=== PATIENT | male | born 1960 | race Caucasian/White ===

== ENCOUNTER 2017-01-03 10:01 | Inpatient (IN) | payer BC ==
[2017-01-03] MEDS ORDERED: SODIUM CHLORIDE 0.9% 1,000 ML IV ONE ×2 (10:39→11:41)
--- NOTE | 2017-01-03 10:42 | ED ---
General Adult HPI - General Chief complaint: Arrhythmia/Palpitations Stated complaint: Heart Fluttering Time Seen by Provider: 01/03/17 10:11 Source: patient, RN notes reviewed Mode of arrival: wheelchair Limitations: no limitations - History of Present Illness Initial comments: 56-year-old male presents for evaluation of palpitations and lightheadedness. Patient states he was driving to workarounds through this morning, felt a fluttering in his chest, no pain, no nausea. Did have some mild shortness of breath. He states he had some vision changes. Total vision. This resolved without any intervention. Went to work, had 2 or 3 additional episodes the same palpitations vision changes. He did feel little lightheaded. States he had a normal breakfast, but did not have anything to drink today. No fever. No headache. No nausea vomiting or diarrhea. Patient has no chest pain complaints. At the time of evaluation he is asymptomatic, normal vision. - Related Data Home Medications Medication Instructions Recorded Confirmed Omeprazole Magnesium [Prilosec OTC] 20 mg PO DAILY PRN 01/03/17 01/03/17 Allergies Allergy/AdvReac Type Severity Reaction Status Date / Time No Known Allergies Allergy Unverified 01/03/17 10:23 Review of Systems ROS Statement: Those systems with pertinent positive or pertinent negative responses have been documented in the HPI. ROS Other: All systems not noted in ROS Statement are negative. Past Medical History Past Medical History: GERD/Reflux History of Any Multi-Drug Resistant Organisms: None Reported Past Surgical History: Appendectomy, Tonsillectomy Past Psychological History: No Psychological Hx Reported Smoking Status: Never smoker Past Alcohol Use History: None Reported Past Drug Use History: None Reported General Exam Limitations: no limitations General appearance: alert, in no apparent distress Eye exam: Present: normal appearance, PERRL ENT exam: Present: normal exam Neck exam: Present: normal inspection. Absent: tenderness Respiratory exam: Present: normal lung sounds bilaterally. Absent: respiratory distress Cardiovascular Exam: Present: regular rate, normal rhythm, normal heart sounds GI/Abdominal exam: Present: soft. Absent: distended, tenderness Extremities exam: Present: normal inspection, normal capillary refill. Absent: pedal edema Neurological exam: Present: alert, oriented X3, CN II-XII intact. Absent: motor sensory deficit Psychiatric exam: Present: normal affect, normal mood Skin exam: Present: warm, dry, intact. Absent: cyanosis, diaphoretic Course Vital Signs 01/03/17 01/03/17 01/03/17 10:02 11:31 11:32 Temperature 96.9 F L Pulse Rate 90 Pulse Rate [ 66 87 Pulse Oximetery ] Respiratory 18 16 17 Rate Blood Pressure 114/72 Blood Pressure 102/68 [Right Arm Sitting] Blood Pressure [Right Arm Standing] Blood Pressure 95/65 [Right Arm Supine] O2 Sat by Pulse 96 97 97 Oximetry 01/03/17 11:33 Temperature Pulse Rate Pulse Rate [ 80 Pulse Oximetery ] Respiratory 16 Rate Blood Pressure Blood Pressure [Right Arm Sitting] Blood Pressure 95/67 [Right Arm Standing] Blood Pressure [Right Arm Supine] O2 Sat by Pulse 96 Oximetry EKG Findings - EKG Comments: EKG Findings:: EKG obtained at 1019, normal sinus rhythm ventricular rate 82, ND interval 172, QRS duration 82, QTC 4:15, no ST segment elevation no T-wave abnormality. EKG obtained at 1150 to normal sinus rhythm, ventricular rate 68, purulent 74, QRS duration 78, QTC [address] segment elevation or depression no T -wave abnormality Medical Decision Making - Medical Decision Making 56-year-old male presenting with palpitations, lightheadedness. Patient denies any chest pain. These episodes lasted seconds at a time. Had several episodes this morning. There was some mild shortness of breath. No nausea vomiting. No diaphoresis. EKG obtained at 1020 nonischemic, he repeat EKG at 1150 unchanged. Chest x-ray negative for any acute findings. CBC is unremarkable. CMP shows normal tone in all modalities. CK-MB is elevated at 2.8, troponin elevated 0.079. Patient's symptoms began approximately 7:30 this morning. Diagnosis: NSTEMI - Lab Data Result diagrams: 01/03/17 10:50 01/03/17 10:50 Lab Results 01/03/17 01/03/17 01/03/17 Range/Units 10:50 10:50 10:50 WBC 5.2 (3.8-10.6) k/uL RBC 4.86 (4.30-5.90) m/uL Hgb 14.6 (13.0-17.5) gm/dL Hct 44.4 (39.0-53.0) % MCV 91.4 (80.0-100.0) fL MCH 30.0 (25.0-35.0) pg MCHC 32.9 (31.0-37.0) g/dL RDW 13.4 (11.5-15.5) % Plt Count 261 (150-450) k/uL Neutrophils % 65 % Lymphocytes % 24 % Monocytes % 7 % Eosinophils % 1 % Basophils % 1 % Neutrophils # 3.4 (1.3-7.7) k/uL Lymphocytes # 1.3 (1.0-4.8) k/uL Monocytes # 0.4 (0-1.0) k/uL Eosinophils # 0.1 (0-0.7) k/uL Basophils # 0.0 (0-0.2) k/uL PT (9.0-12.0) sec INR (<1.2) APTT (22.0-30.0) sec Sodium 141 (137-145) mmol/L Potassium 4.3 (3.5-5.1) mmol/L Chloride 109 H (98-107) mmol/L Carbon Dioxide 21 L (22-30) mmol/L Anion Gap 11 mmol/L BUN 19 (9-20) mg/dL Creatinine 1.02 (0.66-1.25) mg/dL Est GFR (MDRD) Af Amer >60 (>60 ml/min/1.73 sqM) Est GFR (MDRD) Non-Af >60 (>60 ml/min/1.73 sqM) Glucose 118 H (74-99) mg/dL Calcium 9.7 (8.4-10.2) mg/dL Magnesium 1.8 (1.6-2.3) mg/dL Total Bilirubin 0.4 (0.2-1.3) mg/dL AST 23 (17-59) U/L ALT 36 (21-72) U/L Alkaline Phosphatase 59 (38-126) U/L Total Creatine Kinase 140 (55-170) U/L CK-MB (CK-2) 2.8 H* (0.0-2.4) ng/mL CK-MB (CK-2) Rel Index 2.0 Troponin I 0.079 H* (0.000-0.034) ng/mL Total Protein 6.6 (6.3-8.2) g/dL Albumin 3.9 (3.5-5.0) g/dL TSH 1.210 (0.465-4.680) mIU/L 01/03/17 Range/Units 10:50 WBC (3.8-10.6) k/uL RBC (4.30-5.90) m/uL Hgb (13.0-17.5) gm/dL Hct (39.0-53.0) % MCV (80.0-100.0) fL MCH (25.0-35.0) pg MCHC (31.0-37.0) g/dL RDW (11.5-15.5) % Plt Count (150-450) k/uL Neutrophils % % Lymphocytes % % Monocytes % % Eosinophils % % Basophils % % Neutrophils # (1.3-7.7) k/uL Lymphocytes # (1.0-4.8) k/uL Monocytes # (0-1.0) k/uL Eosinophils # (0-0.7) k/uL Basophils # (0-0.2) k/uL PT 10.6 (9.0-12.0) sec INR 1.0 (<1.2) APTT 23.5 (22.0-30.0) sec Sodium (137-145) mmol/L Potassium (3.5-5.1) mmol/L Chloride (98-107) mmol/L Carbon Dioxide (22-30) mmol/L Anion Gap mmol/L BUN (9-20) mg/dL Creatinine (0.66-1.25) mg/dL Est GFR (MDRD) Af Amer (>60 ml/min/1.73 sqM) Est GFR (MDRD) Non-Af (>60 ml/min/1.73 sqM) Glucose (74-99) mg/dL Calcium (8.4-10.2) mg/dL Magnesium (1.6-2.3) mg/dL Total Bilirubin (0.2-1.3) mg/dL AST (17-59) U/L ALT (21-72) U/L Alkaline Phosphatase (38-126) U/L Total Creatine Kinase (55-170) U/L CK-MB (CK-2) (0.0-2.4) ng/mL CK-MB (CK-2) Rel Index Troponin I (0.000-0.034) ng/mL Total Protein (6.3-8.2) g/dL Albumin (3.5-5.0) g/dL TSH (0.465-4.680) mIU/L Critical Care Time Critical Care Time: Yes Total Critical Care Time: 35 Disposition Clinical Impression: NSTEMI (non-ST elevated myocardial infarction) Disposition: ADMITTED IP TO THIS [facility] Condition: Stable Referrals: Marko Galvan MD [Primary Care Provider] - 1-2 days Decision to Admit Reason: Admit from EC Decision Date: 01/03/17 Decision Time: 11:50
[2017-01-03 11:08] LABS: Basophils % (A) 1 %; CH 30.6; CHCM 33.6; Eosinophils # (A) 0.1 k/uL (0-0.7); Eosinophils % (A) 1 %; HCT 44.4 % (39.0-53.0); HDW 2.48; HGB 14.6 gm/dL (13.0-17.5); Luc # (Auto) 0.08; Luc % (Auto) 2; Lymphocytes # (A) 1.3 k/uL (1.0-4.8); Lymphocytes % (A) 24 %; MCHC 32.9 g/dL (31.0-37.0); MCV 91.4 fL (80.0-100.0); Mean Platelet Volume 6.2; Monocytes # (A) 0.4 k/uL (0-1.0); Monocytes % (A) 7 %; Neutrophils # (A) 3.4 k/uL (1.3-7.7); Neutrophils % (A) 65 %; RBC 4.86 m/uL (4.30-5.90); RDW 13.4 % (11.5-15.5); WBC 5.2 k/uL (3.8-10.6); WBC (Perox) 4.98
[2017-01-03 11:17] LABS: ALT 36 U/L (21-72); AST 23 U/L (17-59); Alkaline Phosphatase 59 U/L (38-126); Anion Gap 11 mmol/L; Blood Urea Nitrogen 19 mg/dL (9-20); Calcium 9.7 mg/dL (8.4-10.2); Carbon Dioxide 21 mmol/L (22-30); Chloride 109 mmol/L (98-107); Glucose 118 mg/dL (74-99); Magnesium 1.8 mg/dL (1.6-2.3); Non-African American GFR(MDRD) >60 (>60 ml/min/1.73 sqM); Potassium 4.3 mmol/L (3.5-5.1); Sodium 141 mmol/L (137-145); Total Bilirubin 0.4 mg/dL (0.2-1.3); Total Protein 6.6 g/dL (6.3-8.2)
--- NOTE | 2017-01-03 11:28 | XR ---
EXAMINATION TYPE: XR chest 2V DATE OF EXAM: 01/03/2017 COMPARISON: None HISTORY: Dizziness and palpitations. TECHNIQUE: Frontal and lateral views of the chest are obtained. FINDINGS: There is no focal air space opacity, pleural effusion, or pneumothorax seen. The cardiac silhouette size is mildly enlarged. The osseous structures are intact. Mild degenerative changes of the thoracic spine are noted. IMPRESSION: No acute cardiopulmonary process.
[2017-01-03 11:44] LABS: Creatine Kinase MB 2.8 ng/mL (0.0-2.4); Troponin I 0.079 ng/mL (0.000-0.034)
[2017-01-03 11:51] LABS: Partial Thromboplastin Time 23.5 sec (22.0-30.0); Prothrombin Time 10.6 sec (9.0-12.0)
[2017-01-03] MEDS ORDERED: HEPARIN SODIUM,PORCINE 5,000 UNIT/ML 1 ML VIAL IV PRN (11:53)
[2017-01-03] MEDS ORDERED: HEPARIN SODIUM,PORCINE 5,000 UNIT/ML 1 ML VIAL IV ONE (11:53)
[2017-01-03] MEDS ORDERED: ASPIRIN 325 MG TAB PO STA (11:53)
[2017-01-03] MEDS ORDERED: NALOXONE 0.4 MG/ML 1 ML VIAL IV PRN (11:55)
[2017-01-03] MEDS ORDERED: ONDANSETRON 4 MG/2 ML VIAL IVP PRN (11:55)
[2017-01-03] MEDS ORDERED: ACETAMINOPHEN TAB 325 MG TAB PO PRN (11:55)
[2017-01-03] MEDS: SODIUM CHLORIDE 0.9% 1,000 ML IV SCH ×2 (12:02→22:49)
[2017-01-03] MEDS: HEPARIN SODIUM,PORCINE/D5W PMX 25,000 UNIT in DEXTROSE/WATER 1 500ML.BAG IV SCH (12:10)
[2017-01-03] MEDS ORDERED: ATORVASTATIN 80 MG TAB PO ONE (14:28)
[2017-01-03] MEDS ORDERED: PANTOPRAZOLE 40 MG TABLET PO PRN (15:41)
--- NOTE | 2017-01-03 15:41 | P.HPIM ---
History of Present Illness 56-year-old male was admitted to the emergency room with complaints of having feelings of palpitations to us chest denies chest pain nausea or diaphoresis. States he was having some visual disturbance. Patient was found to have an elevated troponin to be evaluated by cardiology Review of Systems Eyes: bilateral tunnel vision/blind spots Cardiovascular: Reports palpitations Past Medical History Past Medical History: GERD/Reflux, Sleep Apnea/CPAP/BIPAP Additional Past Medical History / Comment(s): ALICJA with CPAP History of Any Multi-Drug Resistant Organisms: None Reported Past Surgical History: Appendectomy, Tonsillectomy Additional Past Surgical History / Comment(s): Colonoscopy with benign polypectomy, RK bilateral eyes. Past Anesthesia/Blood Transfusion Reactions: No Reported Reaction Smoking Status: Never smoker - Past Family History Father Family Medical History: Myocardial Infarction (SD) Additional Family Medical History / Comment(s): Father of a SD at the age of 48yrs. Mother Family Medical History: Osteoarthritis (OA) Additional Family Medical History / Comment(s): Mother at the age of 77yrs. Medications and Allergies Home Medications Medication Instructions Recorded Confirmed Type Omeprazole Magnesium [Prilosec OTC] 20 mg PO DAILY PRN 01/03/17 01/03/17 History Allergies Allergy/AdvReac Type Severity Reaction Status Date / Time No Known Allergies Allergy Unverified 01/03/17 10:23 Physical Exam Vitals: Vital Signs Temp Pulse Pulse Resp BP BP BP 01/03/17 13:20 69 16 01/03/17 13:00 97.0 F L 69 14 121/81 01/03/17 12:12 72 16 103/70 01/03/17 11:33 80 16 95/67 01/03/17 11:32 87 17 102/68 01/03/17 11:31 66 16 01/03/17 10:02 96.9 F L 90 18 114/72 BP Pulse Ox 01/03/17 13:20 01/03/17 13:00 97 01/03/17 12:12 100 01/03/17 11:33 96 01/03/17 11:32 97 01/03/17 11:31 95/65 97 01/03/17 10:02 96 Intake and Output 01/03/17 01/03/17 01/03/17 06:59 14:59 22:59 Intake Total 1000 Balance 1000 Intake: Amount of Fluid Infused ( 1000 ml) Other: Weight 108.9 kg Patient Weight 01/04/17 06:59 Weight 108.9 kg - Constitutional General appearance: obese - EENT Eyes: PERRLA Ears: bilateral: normal - Neck Neck: normal ROM - Respiratory Respiratory: bilateral: CTA - Cardiovascular Rhythm: regular - Gastrointestinal General gastrointestinal: soft - Integumentary Integumentary: normal - Neurologic Neurologic: CNII-XII intact - Musculoskeletal Musculoskeletal: gait normal - Psychiatric Psychiatric: A&O x's 3, appropriate affect, intact judgment & insight Results CBC & Chem 7: 01/03/17 10:50 01/03/17 10:50 Labs: Abnormal Lab Results - Last 24 Hours (Table) 01/03/17 01/03/17 01/03/17 Range/Units 10:50 10:50 14:28 Chloride 109 H (98-107) mmol/L Carbon Dioxide 21 L (22-30) mmol/L Glucose 118 H (74-99) mg/dL CK-MB (CK-2) 2.8 H* (0.0-2.4) ng/mL Troponin I 0.079 H* 0.159 H* (0.000-0.034) ng/mL Chest x-ray: report reviewed Thrombosis Risk Factor Assmnt - Choose All That Apply Any of the Below Risk Factors Present?: Yes Each Factor Represents 1 point: Acute SD, Age 41-60 years, Obesity (BMI >25) Other Risk Factors: No Other congenital or acquired thrombophilia - If yes, enter type in comment: No Thrombosis Risk Factor Assessment Total Risk Factor Score: 3 Thrombosis Risk Factor Assessment Level: Moderate Risk Assessment and Plan Plan: Assessment Non-STEMI myocardial infarction Elevated troponins History of GERD Sleep apnea uses BiPAP Family history of coronary disease Plan Cardiology consultation
--- NOTE | 2017-01-03 17:12 | CONS ---
CONSULTATION Mr. George is a 56-year-old gentleman who is seen for cardiac evaluation. The patient's emergency room records reviewed. The patient was feeling well this morning. He was driving to work and he felt fluttering and irregular heartbeat, which lasted only for a short time. He was slightly lightheaded. He did not have any nausea, vomiting or sweating. The patient stated he had mild shortness of breath and he felt lightheaded. This resolved without any intervention. He went to work and he had another 3 similar episodes without any chest pain. He felt little lightheaded. Patient did give a history that he had a normal breakfast. He did not have anything to drink this morning. The patient is physically active. Has not been having any exertional chest discomfort. There is no history of diabetes or hypertension. There is no prior history of myocardial infarction. Patient does have a strong family history of coronary artery disease. HOME MEDICATIONS: Omeprazole, Prilosec 20 mg daily. PAST MEDICAL HISTORY: Includes appendicectomy and tonsillectomy. SOCIAL HISTORY: Nonsmoker. FAMILY HISTORY: Positive for premature coronary artery disease. PHYSICAL EXAMINATION: Is in the emergency room, patient's vital signs were stable. His heart rate was 90, respiratory rate was 18. Blood pressure was 114/72 mmHg, oxygen saturation was 96%. Initial blood pressure was 95/67 mmHg. HEAD/ENT examination was negative. Neck is supple. There is no increase in jugular venous pressure. Both the carotid pulses are felt. There is no bruit. Chest is symmetrical heart the PMI is not felt. First and second heart sounds are normal. There is no evidence of any murmur. Lungs are clinically clear to auscultation and percussion. Abdomen is soft. Liver and spleen are not enlarged. Bowel sounds heard. Extremities: Peripheral pulses are 2+. EKG shows normal sinus rhythm without any acute ischemic changes. The patient's initial troponin is 0.079. CK-MB band is 2.8. EKG shows normal sinus rhythm without any acute ischemic changes. STAT echocardiogram was performed, which did not show any wall motion abnormality. IMPRESSION: This patient had an episode of heart fluttering palpitations on several occasions this morning. Each episode lasted only for 30 seconds to 1 minute. The patient's EKG is normal. The patient has abnormal troponin suggestive of non-Q-wave myocardial infarction. Remote possibility of pulmonary embolism maybe also considered. We will obtain a D-dimer test, serial EKGs and cardiac enzymes will be done. Echocardiogram is normal. If there is an upward trend in the troponin patient may need cardiac catheterization to rule out any significant coronary artery disease and meanwhile we will start the patient on aspirin, Lipitor and beta tina. VITOR / SCHUYLERN: [id number] /
[2017-01-03 18:26] LABS: Creatine Kinase MB 2.9 ng/mL (0.0-2.4); Troponin I 0.131 ng/mL (0.000-0.034)
[2017-01-03] MEDS: METOPROLOL TARTRATE 25 MG TAB PO SCH (20:41)
[2017-01-03 23:31] LABS: Creatine Kinase MB 2.2 ng/mL (0.0-2.4)
[2017-01-03 23:38] LABS: Troponin I 0.097 ng/mL (0.000-0.034)
[2017-01-04 06:27] LABS: Basophils % (A) 1 %; CHCM 32.6; Eosinophils # (A) 0.1 k/uL (0-0.7); Eosinophils % (A) 2 %; HCT 46.4 % (39.0-53.0); HDW 2.43; HGB 14.8 gm/dL (13.0-17.5); Luc # (Auto) 0.16; Luc % (Auto) 3; Lymphocytes # (A) 2.7 k/uL (1.0-4.8); Lymphocytes % (A) 43 %; MCH 29.6 pg (25.0-35.0); MCV 92.6 fL (80.0-100.0); Mean Platelet Volume 6.1; Monocytes # (A) 0.4 k/uL (0-1.0); Monocytes % (A) 6 %; Neutrophils # (A) 2.9 k/uL (1.3-7.7); Neutrophils % (A) 46 %; RBC 5.01 m/uL (4.30-5.90); RDW 13.4 % (11.5-15.5); WBC 6.3 k/uL (3.8-10.6)
[2017-01-04 06:34] LABS: ALT 46 U/L (21-72); AST 21 U/L (17-59); Alkaline Phosphatase 62 U/L (38-126); Anion Gap 10 mmol/L; Blood Urea Nitrogen 15 mg/dL (9-20); Calcium 9.5 mg/dL (8.4-10.2); Carbon Dioxide 23 mmol/L (22-30); Chloride 109 mmol/L (98-107); Glucose 94 mg/dL (74-99); Magnesium 1.8 mg/dL (1.6-2.3); Non-African American GFR(MDRD) >60 (>60 ml/min/1.73 sqM); Potassium 4.4 mmol/L (3.5-5.1); Sodium 142 mmol/L (137-145); Total Bilirubin 0.5 mg/dL (0.2-1.3); Total Protein 6.5 g/dL (6.3-8.2)
[2017-01-04] MEDS: HEPARIN SODIUM,PORCINE/D5W PMX 25,000 UNIT in DEXTROSE/WATER 1 500ML.BAG IV SCH (07:13)
[2017-01-04] MEDS ORDERED: ALPRAZolam 0.25 MG TAB PO PRN (08:13)
[2017-01-04] MEDS ORDERED: SODIUM CHLORIDE 0.9% 1,000 ML in EMPTY BAG 1 BAG IV ONE (08:13)
[2017-01-04] MEDS ORDERED: ASPIRIN 325 MG TAB PO STA (08:13)
[2017-01-04] MEDS ORDERED: ATORVASTATIN 80 MG TAB PO STA (08:13)
[2017-01-04] MEDS ORDERED: NITROGLYCERIN SL TABS 0.4 MG TAB SUBLINGUAL PRN (08:13)
[2017-01-04] MEDS ORDERED: ALPRAZolam 0.5 MG TAB PO PRN (08:13)
[2017-01-04] MEDS: SODIUM CHLORIDE 0.9% 1,000 ML IV SCH (08:19)
[2017-01-04] MEDS: METOPROLOL TARTRATE 25 MG TAB PO SCH (08:24)
[2017-01-04] MEDS ORDERED: ASPIRIN 325 MG TAB PO SCH (09:00)
[2017-01-04] MEDS ORDERED: LIDOCAINE 2% INJ 20 MG/ML (20 ML MDV) ONE (09:02)
[2017-01-04 09:40] LABS: Glucose,Whole Blood 109 mg/dL (75-99)
[2017-01-04] MEDS ORDERED: MIDAZOLAM 2 MG/2 ML VIAL ONE (09:53)
[2017-01-04] MEDS ORDERED: fentaNYL (PF) 50 MCG/ML 2 ML AMP ONE (09:53)
[2017-01-04] MEDS ORDERED: IV FLUID CONTINUATION 900 ML IV ONE (09:56)
[2017-01-04] MEDS ORDERED: fentaNYL (PF) 50 MCG/ML 2 ML AMP IV ONE (10:13)
[2017-01-04] MEDS ORDERED: MIDAZOLAM 2 MG/2 ML VIAL IVP ONE (10:13)
[2017-01-04] MEDS ORDERED: LIDOCAINE 2% INJ 20 MG/ML SQ ONE (10:20)
[2017-01-04] MEDS ORDERED: IOHEXOL 350 MG/ML 125ML BOTTLE INJ ONE (10:40)
[2017-01-04] MEDS ORDERED: RX INFO: IV CONTRAST WAS GIVEN 1 EACH MISC MISCELLANE PRN (10:47)
[2017-01-04 11:08] VITALS: RESP 16; TEMP 97.1
[2017-01-04] MEDS ORDERED: CLOPIDOGREL 75 MG TAB PO STA (11:11)
[2017-01-04 11:39] LABS: Cholesterol 173 mg/dL (<200); HDL Cholesterol 55 mg/dL (40-60)
--- NOTE | 2017-01-04 12:43 | CC ---
CARDIAC CATHETERIZATION REPORT Mr. George is a 56-year-old gentleman who was admitted with episodes of palpitations and some dizziness. Did not have any chest pain. EKG was normal but patient had a positive troponin suggestive of a non-Q-wave myocardial infarction. Echocardiogram was normal. In view of the abnormal cardiac enzymes, patient was recommended to have a cardiac catheterization for definitive diagnosis. PROCEDURE: The right groin was prepped and draped in the usual manner and the skin was infiltrated with 2% xylocaine. The right femoral artery was entered using Seldinger technique. A #6-Croat[place] sheath was placed in. Selective coronary angiography was then performed in multiple projections. The left ventriculography was performed in 30 degree [place]UZ projection. Patient tolerated the procedure well. Sheath was removed and good hemostasis was achieved with the use of Angio-Seal. HEMODYNAMICS: Left ventricular end-diastolic pressure is 16 mmHg prior to angiography. No gradient is noted across the aortic valve. Left ventriculography reveals normal left ventricular systolic function with ejection fraction of 60%. SELECTIVE CORONARY ANGIOGRAPHY: Left main coronary artery is normal and patent. LAD is a good caliber blood vessel. There is a minimal plaque noted in the mid LAD, diagonal branch is normal. Circumflex coronary artery is a good caliber blood vessel. There is a high obtuse marginal branch and then circumflex coronary artery gives rise to a good size PLV branch. Circumflex coronary artery and its branches are normal. Right coronary artery is a dominant in distribution, gives rise to the posterior descending artery and PLV branch and they are normal. FINAL IMPRESSION: This study reveals minimal plaque in the left anterior descending artery. Right coronary artery, circumflex coronary artery is normal. Left ventricular systolic function is normal. RECOMMENDATIONS: In view of the abnormal cardiac enzymes, I would recommend to aggressively treat the patient's risk factors. We will treat the patient with Lipitor, aspirin and Plavix for the time being and 30-day event monitor will be done. MMODL / IJN: [id number] /
--- NOTE | 2017-01-04 13:08 | ECHOF ---
Referral Reason:abnormal troponin MEASUREMENTS -------- HEIGHT: 188.0 cm WEIGHT: 108.9 kg BP: 114/77 RVIDd: 3.5 cm (< 3.3) IVSd: 1.1 cm (0.6 - 1.1) LVIDd: 4.9 cm (3.9 - 5.3) LVPWd: 1.2 cm (0.6 - 1.1) IVSs: 1.8 cm LVIDs: 2.9 cm LVPWs: 1.7 cm LA Diam: 3.8 cm (2.7 - 3.8) LAESV Index (A-L): 25.25 ml/m Ao Diam: 3.5 cm (2.0 - 3.7) AV Cusp: 2.4 cm (1.5 - 2.6) MV EXCURSION: 14.577 mm (> 18.000) MV EF SLOPE: 64 mm/s (70 - 150) EPSS: 0.5 cm MV E Krish: 0.91 m/s MV DecT: 218 ms MV A Krish: 0.70 m/s MV E/A Ratio: 1.31 RAP: 5.00 mmHg RVSP: 23.28 mmHg FINDINGS -------- Sinus rhythm. This was a technically good study. The left ventricular size is normal. There is borderline concentric left ventricular hypertrophy. Overall left ventricular systolic function is normal with, an EF between 60 - 65 %. The right ventricle is mildly enlarged. Normal LA size by volume 22+/-6 ml/m2. The right atrium is normal in size. The aortic valve is trileaflet and appears structurally normal. The mitral valve is normal. Mild tricuspid regurgitation present. Right ventricular systolic pressure is normal at < 35 mmHg. Trace/mild (physiologic) pulmonic regurgitation. The aortic root size is normal. The inferior vena cava is mildly dilated. There is no pericardial effusion. CONCLUSIONS -------- 1. Sinus rhythm. 2. The mitral valve is normal. 3. Mild tricuspid regurgitation present. 4. Right ventricular systolic pressure is normal at < 35 mmHg. 5. Trace/mild (physiologic) pulmonic regurgitation. 6. The aortic root size is normal. 7. The inferior vena cava is mildly dilated. 8. There is no pericardial effusion. 9. This was a technically good study. 10. The left ventricular size is normal. 11. There is borderline concentric left ventricular hypertrophy. 12. Overall left ventricular systolic function is normal with, an EF between 60 - 65 %. 13. The right ventricle is mildly enlarged. 14. Normal LA size by volume 22+/-6 ml/m2. 15. The right atrium is normal in size. 16. The aortic valve is trileaflet and appears structurally normal. PHARMACY TECHNOLOGIST: Amniah Anrold RDCS
[2017-01-04 14:55] VITALS: BP 120/75; PULSE 62
--- NOTE | 2017-01-04 16:14 | P.DS ---
Providers Date of admission: 01/03/17 11:55 Expected date of discharge: 01/04/17 Attending physician: Marko Galvan Consults: 01/03/17 11:56 Consult Physician Urgent Consulting Provider: Jarred Colby Consult Reason/Comments: NSTEMI Do you want consulting provider notified?: Yes Primary care physician: Marko Galvan Hospital Course: 56-year-old male presented to the emergency room with complaints of palpitation and visual disturbance. Patient was found to have troponin level elevated 3. Patient was evaluated by cardiac cath no lesions found. Patient will be initiated on metoprolol Lipitor Plavix and aspirin Assessment non-STEMI myocardial infarction as indicated by elevated troponins Negative cardiac cath History of GERD History of sleep apnea on BiPAP Family history of coronary disease Plan Discharge home follow-up with cardiology and family physician This to be set up with the 30 day event monitor Patient Condition at Discharge: Stable Plan - Discharge Summary New Discharge Prescriptions: New Acetaminophen Tab [Tylenol] 650 mg PO Q6HR PRN tab PRN Reason: Mild Pain Or Fever > 100.5 Aspirin 81 mg PO DAILY chew Atorvastatin [Lipitor] 80 mg PO DAILY #30 tab Clopidogrel [Plavix] 75 mg PO DAILY 30 Days #30 tab Metoprolol Tartrate [Lopressor] 25 mg PO BID #60 tab Continue Omeprazole Magnesium [Prilosec OTC] 20 mg PO DAILY PRN PRN Reason: Acid Reflux/Heartburn Discharge Medication List Omeprazole Magnesium [Prilosec OTC] 20 mg PO DAILY PRN 01/03/17 [History] Acetaminophen Tab [Tylenol] 650 mg PO Q6HR PRN tab 01/04/17 [Rx] Aspirin 81 mg PO DAILY chew 01/04/17 [Rx] Atorvastatin [Lipitor] 80 mg PO DAILY #30 tab 01/04/17 [Rx] Clopidogrel [Plavix] 75 mg PO DAILY 30 Days #30 tab 01/04/17 [Rx] Metoprolol Tartrate [Lopressor] 25 mg PO BID #60 tab 01/04/17 [Rx] Follow up Appointment(s)/Referral(s): Marko Galvan MD [Primary Care Provider] - 1-2 days Patient Instructions/Handouts: *Surgery [facility] - After Heart Catheterization - [employer] Instructions, Left Heart Catheterization (DC) Discharge Disposition: HOME SELF-CARE
[2017-01-04] MEDS ORDERED: ATORVASTATIN 80 MG TAB PO SCH (21:00)
[2017-01-05] MEDS ORDERED: ATORVASTATIN 80 MG TAB PO SCH (09:00)
[2017-01-05] MEDS ORDERED: CLOPIDOGREL 75 MG TAB PO SCH (09:00)
[2017-01-05] MEDS ORDERED: ASPIRIN 81 MG PO SCH (09:00)
== END 2017-01-04 17:37 | disposition home or self-care (01) | DRG 282 ==
LOC: EC 10:01 → 6SEL 11:55
PROVIDERS: ADMIT Family Medicine; ATTEND Family Medicine
PROC: B2151ZZ Fluoroscopy of Left Heart using Low Osmolar Contrast (ICD-10-PCS; 2017-01-04)
PROC: 4A023N7 Measurement of Cardiac Sampling and Pressure, Left Heart, Percutaneous Approach (ICD-10-PCS; principal; 2017-01-04 10:00)
PROC: B2111ZZ Fluoroscopy of Multiple Coronary Arteries using Low Osmolar Contrast (ICD-10-PCS; principal; 2017-01-04 10:00)
DX: I21.4 Non-ST elevation (NSTEMI) myocardial infarction (principal); G47.33 Obstructive sleep apnea (adult) (pediatric); I49.9 Cardiac arrhythmia, unspecified; K21.9 Gastro-esophageal reflux disease without esophagitis; H53.483 Generalized contraction of visual field, bilateral; Z86.010 Personal history of colon polyps; Z79.899 Other long term (current) drug therapy; Z90.49 Acquired absence of other specified parts of digestive tract; Z82.49 Family history of ischemic heart disease and other diseases of the circulatory system
CPT/HCPCS: 36415; 71020; 80053; 80061; 82272; 82550; 82553; 83735; 84443; 84484; 85025; 85379; 85610; 85730; 93005; 93270; 93271; 93306; 93458; 96361; 96365; 96376; 99291

== ENCOUNTER 2019-01-13 05:46 | Emergency (ER) | payer BC ==
[2019-01-13] MEDS ORDERED: SODIUM CHLORIDE 0.9% 1,000 ML IV ONE (06:17)
[2019-01-13] MEDS ORDERED: MORPHINE SULFATE 2 MG/ML SYRINGE IVP ONE (06:17)
[2019-01-13 07:03] LABS: Basophils % (A) 0 %; Eosinophils # (A) 0.1 k/uL (0-0.7); Eosinophils % (A) 2 %; HCT 43.9 % (39.0-53.0); HGB 14.7 gm/dL (13.0-17.5); Lymphocytes # (A) 1.4 k/uL (1.0-4.8); Lymphocytes % (A) 21 %; MCH 30.2 pg (25.0-35.0); MCHC 33.5 g/dL (31.0-37.0); MCV 90.1 fL (80.0-100.0); Mean Platelet Volume 5.4; Monocytes # (A) 0.5 k/uL (0-1.0); Monocytes % (A) 7 %; Neutrophils # (A) 4.7 k/uL (1.3-7.7); Neutrophils % (A) 69 %; Platelet Count 282 k/uL (150-450); RBC 4.87 m/uL (4.30-5.90); RDW 13.4 % (11.5-15.5); WBC 6.7 k/uL (3.8-10.6)
[2019-01-13 07:10] LABS: ALT 30 U/L (21-72); AST 37 U/L (17-59); African American GFR (CKD) >90 (>60 ml/min/1.73 sqM); Albumin 3.8 g/dL (3.5-5.0); Alkaline Phosphatase 56 U/L (38-126); Anion Gap 6 mmol/L; Blood Urea Nitrogen 17 mg/dL (9-20); Calcium 9.5 mg/dL (8.4-10.2); Carbon Dioxide 27 mmol/L (22-30); Chloride 107 mmol/L (98-107); Glucose 108 mg/dL (74-99); Potassium 4.3 mmol/L (3.5-5.1); Sodium 140 mmol/L (137-145); Total Bilirubin 0.5 mg/dL (0.2-1.3); Total Protein 6.6 g/dL (6.3-8.2)
[2019-01-13 07:11] LABS: INR 0.9 (<1.2); Partial Thromboplastin Time 23.5 sec (22.0-30.0); Prothrombin Time 10.1 sec (9.0-12.0)
--- NOTE | 2019-01-13 07:14 | ED ---
Fall HPI - General Chief Complaint: Fall Stated Complaint: Fall/Syncope Time Seen by Provider: 01/13/19 06:06 Source: patient, RN notes reviewed, old records reviewed Mode of arrival: ambulatory - History of Present Illness Initial Comments: Patient is a 4-year-old male, who presents emergency department today chief complaint of falling off of an 8 foot ladder. He reports that this happened yesterday at 10 AM. Patient reports is not was conscious. Patient reports that he fell onto the sand pit. He states that since that time he's had some lower back pain and right flank pain. Patient reports that this morning at 4:30 he woke up with severe lower back pain. Patient reports that when he woke up with this pain he went to sit up. reports that he then had a syncopal episode and was unconscious for approximately a minute. Patient states that he has no chest pain shortness of breath at this time. He denies any abdominal pain. Patient reports that he mainly has right-sided flank pain. Patient states that he has had no significant cardiac history. He is not on blood thinners. - Related Data Home Medications Medication Instructions Recorded Confirmed Testosterone Cypionate 200 mg IM Q14D 01/13/19 01/13/19 [Depo-Testosterone] Previous Rx's Medication Instructions Recorded HYDROcodone/APAP 5-325MG [[place] 1 tab PO Q6HR PRN 3 Days #12 tab 01/13/19 5-325] Ibuprofen 800 mg PO TID #30 tablet 01/13/19 Allergies Allergy/AdvReac Type Severity Reaction Status Date / Time cyclobenzaprine Allergy Rapid Verified 01/13/19 08:16 [From Flexeril] Heart Rate Review of Systems ROS Statement: Those systems with pertinent positive or pertinent negative responses have been documented in the HPI. ROS Other: All systems not noted in ROS Statement are negative. Past Medical History Past Medical History: GERD/Reflux, Sleep Apnea/CPAP/BIPAP Additional Past Medical History / Comment(s): ALICJA with CPAP History of Any Multi-Drug Resistant Organisms: None Reported Past Surgical History: Appendectomy, Tonsillectomy Additional Past Surgical History / Comment(s): Colonoscopy with benign polypectomy, RK bilateral eyes. Past Anesthesia/Blood Transfusion Reactions: No Reported Reaction Past Psychological History: No Psychological Hx Reported Smoking Status: Never smoker Past Alcohol Use History: None Reported Past Drug Use History: None Reported - Past Family History Father Family Medical History: Myocardial Infarction ([place]) Additional Family Medical History / Comment(s): Father of a [place] at the age of 48yrs. Mother Family Medical History: Osteoarthritis ([place]) Additional Family Medical History / Comment(s): Mother at the age of 77yrs. General Exam - General Exam Comments Initial Comments: 58 year old male, Moderate discomfort with movement. Limitations: no limitations General appearance: alert, in no apparent distress Head exam: Present: atraumatic, normocephalic, normal inspection Eye exam: Present: normal appearance, PERRL, EOMI. Absent: scleral icterus, conjunctival injection, periorbital swelling ENT exam: Present: normal exam, mucous membranes moist Neck exam: Present: normal inspection. Absent: tenderness, meningismus, lymphadenopathy Respiratory exam: Present: normal lung sounds bilaterally. Absent: respiratory distress, wheezes, rales, rhonchi, stridor Cardiovascular Exam: Present: regular rate, normal rhythm, normal heart sounds. Absent: systolic murmur, diastolic murmur, rubs, gallop, clicks Extremities exam: Present: normal inspection, full ROM, normal capillary refill. Absent: tenderness, pedal edema, joint swelling, calf tenderness Back exam: Present: normal inspection, tenderness (Lumbar spinal tenderness. ) Neurological exam: Present: alert, oriented X3, CN II-XII intact Psychiatric exam: Present: normal affect, normal mood Skin exam: Present: warm, dry, intact, normal color. Absent: rash Course Vital Signs 01/13/19 01/13/19 01/13/19 05:54 08:51 09:43 Temperature 98 F 98.2 F 98.1 F Pulse Rate 55 L 57 L 63 Respiratory 18 20 18 Rate Blood Pressure 105/68 114/69 110/61 O2 Sat by Pulse 98 99 97 Oximetry Medical Decision Making - Medical Decision Making 58 year old male presents one day after falling off of ladder and landing on back, then had a syncopal episode this morning. Full work up completed and shows normal labs, and EKG shows bradycardia. CT brain and chest abdomen alnd pelvis completed. CT shows evidence of transverse process fracture of right L1 and L2. No other complicating injury. Patient case discussed with Dr. Clifford. Patient is to be placed in TSLO brace and follow up with . Discussed return parameters. - Lab Data Result diagrams: 01/13/19 06:50 01/13/19 06:50 Lab Results 01/13/19 01/13/19 01/13/19 Range/Units 06:50 06:50 06:50 WBC 6.7 (3.8-10.6) k/uL RBC 4.87 (4.30-5.90) m/uL Hgb 14.7 (13.0-17.5) gm/dL Hct 43.9 (39.0-53.0) % MCV 90.1 (80.0-100.0) fL MCH 30.2 (25.0-35.0) pg MCHC 33.5 (31.0-37.0) g/dL RDW 13.4 (11.5-15.5) % Plt Count 282 (150-450) k/uL Neutrophils % 69 % Lymphocytes % 21 % Monocytes % 7 % Eosinophils % 2 % Basophils % 0 % Neutrophils # 4.7 (1.3-7.7) k/uL Lymphocytes # 1.4 (1.0-4.8) k/uL Monocytes # 0.5 (0-1.0) k/uL Eosinophils # 0.1 (0-0.7) k/uL Basophils # 0.0 (0-0.2) k/uL PT 10.1 (9.0-12.0) sec INR 0.9 (<1.2) APTT 23.5 (22.0-30.0) sec Sodium 140 (137-145) mmol/L Potassium 4.3 (3.5-5.1) mmol/L Chloride 107 (98-107) mmol/L Carbon Dioxide 27 (22-30) mmol/L Anion Gap 6 mmol/L BUN 17 (9-20) mg/dL Creatinine 1.04 (0.66-1.25) mg/dL Est GFR (CKD-EPI)AfAm >90 (>60 ml/min/1.73 sqM) Est GFR (CKD-EPI)NonAf 78 (>60 ml/min/1.73 sqM) Glucose 108 H (74-99) mg/dL Calcium 9.5 (8.4-10.2) mg/dL Total Bilirubin 0.5 (0.2-1.3) mg/dL AST 37 (17-59) U/L ALT 30 (21-72) U/L Alkaline Phosphatase 56 (38-126) U/L Troponin I (0.000-0.034) ng/mL Total Protein 6.6 (6.3-8.2) g/dL Albumin 3.8 (3.5-5.0) g/dL Blood Type Blood Type Confirm Blood Type Recheck Bld Type Recheck Status Antibody Screen Spec Expiration Date 01/13/19 01/13/19 01/13/19 Range/Units 06:50 06:50 07:01 WBC (3.8-10.6) k/uL RBC (4.30-5.90) m/uL Hgb (13.0-17.5) gm/dL Hct (39.0-53.0) % MCV (80.0-100.0) fL MCH (25.0-35.0) pg MCHC (31.0-37.0) g/dL RDW (11.5-15.5) % Plt Count (150-450) k/uL Neutrophils % % Lymphocytes % % Monocytes % % Eosinophils % % Basophils % % Neutrophils # (1.3-7.7) k/uL Lymphocytes # (1.0-4.8) k/uL Monocytes # (0-1.0) k/uL Eosinophils # (0-0.7) k/uL Basophils # (0-0.2) k/uL PT (9.0-12.0) sec INR (<1.2) APTT (22.0-30.0) sec Sodium (137-145) mmol/L Potassium (3.5-5.1) mmol/L Chloride (98-107) mmol/L Carbon Dioxide (22-30) mmol/L Anion Gap mmol/L BUN (9-20) mg/dL Creatinine (0.66-1.25) mg/dL Est GFR (CKD-EPI)AfAm (>60 ml/min/1.73 sqM) Est GFR (CKD-EPI)NonAf (>60 ml/min/1.73 sqM) Glucose (74-99) mg/dL Calcium (8.4-10.2) mg/dL Total Bilirubin (0.2-1.3) mg/dL AST (17-59) U/L ALT (21-72) U/L Alkaline Phosphatase (38-126) U/L Troponin I <0.012 (0.000-0.034) ng/mL Total Protein (6.3-8.2) g/dL Albumin (3.5-5.0) g/dL Blood Type A Positive Blood Type Confirm A Positive Blood Type Recheck No Previous Record Bld Type Recheck Status CABO Indicated Antibody Screen NEGATIVE Spec Expiration Date 01/16/2019234901/13/19 07:29 EKG shows sinus bradycardia, otherwise normal EKG. Ventricular rate of 58 bpm.. Intervals 170 ms. QRS duration is 88 ms. QT QTc is 418/410 ms. - Radiology Data Radiology results: report reviewed Fractures of the right transverse process of L1 and L2. No other fracture seen. Simple-appearing right renal cysts. Thickening of the distal sigmoid colon as well as the transverse colons. Correlating for colitis. CT of the brain and C-spine are Negative for any acute injury cranial normality. C-spine shows no acute osseous lesion. Evidence of degenerative changes. Disposition Clinical Impression: Fracture of transverse process of spine without spinal cord lesion, Fall, Episode of syncope Disposition: HOME SELF-CARE Condition: Good Instructions (If sedation given, give patient instructions): Vertebral Compression Fracture (ED) Additional Instructions: Patient advised to wear the [employer] low brace, get brace at [employer]. Take pain medicine as prescribed. Patient can follow-up with primary care physician as well within the next week. Patient is to follow-up with Dr. Costa on Monday or Monday for further evaluation. Patient should remain from work until clear by ortho. Prescriptions: Ibuprofen 800 mg PO TID #30 tablet HYDROcodone/APAP 5-325MG [[place] 5-325] 1 tab PO Q6HR PRN 3 Days #12 tab PRN Reason: Pain Is patient prescribed a controlled substance at d/c from ED?: Yes If prescribed controlled substance>3 days was MAPS reviewed?: Prescribed <3 Days If opioid is for acute pain is fill amount 7 days or less?: Yes If Rx opioid, was Start Talking consent form obtained?: Yes Referrals: Marko Galvan MD [Primary Care Provider] - 1-2 days Abad Costa DO [Doctor of Osteopathic Medicine] - 1-2 days Time of Disposition: 09:14
--- NOTE | 2019-01-13 08:13 | CT ---
EXAMINATION TYPE: CT brain carine fam DATE OF EXAM: 01/13/2019 COMPARISON: NONE HISTORY: Fall CT DLP: 1667.7 mGycm Automated exposure control for dose reduction was used. TECHNIQUE: CT scan of the head and cervical spine are performed without contrast. FINDINGS: BRAIN: Central structures are midline. There is no evidence of hydrocephalus. No acute focal lesion, mass effect or midline shift is seen. I do not see evidence of intracranial blood. Visualized portions of the paranasal sinuses and mastoids are clear. The bony calvarium is intact. IMPRESSION: NORMAL CT SCAN OF THE BRAIN. CERVICAL SPINE: There is some dependent atelectasis in the dependent portions of the lungs. Prevertebral soft tissues appear normal. Vertebral body height and alignment appear normal. Atlantoaxial relationships are normal. There is disc space loss and hypertrophic spondylosis at C5-6 and C6-7. There is uncovertebral joint disease present at these levels. There is only minimal facet arthropathy. There is no definite protru katy. No fractures are identified. Lucencies through the C3 vertebral body are believed to BE due to nutrient vessels. IMPRESSION: 1. NO ACUTE OSSEOUS LESION. 2. DEGENERATIVE CHANGE.
[2019-01-13] MEDS ORDERED: MORPHINE SULFATE 4 MG/ML SYRINGE IVP STA (08:19)
[2019-01-13] MEDS ORDERED: ORPHENADRINE 30 MG/ML 2 ML VIAL IVP STA (08:19)
--- NOTE | 2019-01-13 08:26 | CT ---
EXAMINATION TYPE: CT ChestAbdPelvis w con DATE OF EXAM: 01/13/2019 COMPARISON: NONE HISTORY: Fall, Rt flank pain CT DLP: 1476.4 mGycm Automated exposure control for dose reduction was used. TECHNIQUE: Helical acquisition through the abdomen and pelvis was obtained without oral contrast but following the intravenous administration of 100 mL of Isovue 300. The data was formatted in the axia l, coronal and sagittal projections. FINDINGS: There is atelectatic change present at the lung bases bilaterally. There is no definite shreyas g contusion. No pneumothorax is seen. There is a minimally displaced fracture of the right transverse process of L1 as well as L2. No verte bral body fracture is seen. There is degenerative disc disease present at L5-S1. No pelvic fracture i s seen. No rib fracture is identified. Within the abdomen, the liver, spleen and gallbladder are normal. Both adrenal glands are normal. There is a 12 mm, simple appearing cyst arising from the upper pole of the right kidney. There are pa rapelvic cysts present on the right. I suspect there are also some parapelvic cysts on the left. Pancreas is unremarkable. There is no significant retroperitoneal, iliac or inguinal adenopathy. The bladder is unremarkable. There is mild thickening of the distal sigmoid colon. There is also some questionable thickening invo lving the transverse colon. The appendix is not visualized with certainty. Small bowel loops are of normal caliber. There is no free fluid and no free air. IMPRESSION: 1. FRACTURES OF THE RIGHT TRANSVERSE PROCESSES OF L1 AND L2. NO OTHER FRACTURES ARE SEEN. 2. SIMPLE APPEARING RIGHT RENAL CYST. 3. THICKENING OF THE DISTAL SIGMOID COLON WELL THE TRANSVERSE AND DESCENDING COLONS. PLEASE COR RELATE FOR COLITIS.
[2019-01-13 09:44] VITALS: BP 110/61; PULSE 63; RESP 18; TEMP 98.1
== END 2019-01-13 09:43 | disposition home or self-care (01) ==
LOC: EC 05:46
DX: S32.019A Unspecified fracture of first lumbar vertebra, initial encounter for closed fracture (principal); S32.029A Unspecified fracture of second lumbar vertebra, initial encounter for closed fracture; R55 Syncope and collapse; R00.1 Bradycardia, unspecified; G47.33 Obstructive sleep apnea (adult) (pediatric); Z88.8 Allergy status to other drugs, medicaments and biological substances; Z53.20 Procedure and treatment not carried out because of patient's decision for unspecified reasons; Z99.89 Dependence on other enabling machines and devices; Z82.49 Family history of ischemic heart disease and other diseases of the circulatory system; Z90.89 Acquired absence of other organs; W11.XXXA Fall on and from ladder, initial encounter; Y93.89 Activity, other specified; Y92.69 Other specified industrial and construction area as the place of occurrence of the external cause
CPT/HCPCS: 99285; 96374; 96376; 96361 ×2; 36415; 93005; 86900; 86901; 80053; 84484; 85025; 85610; 85730; 86850; 72125; 70450; 71260; 74177; J2270 ×2; Q9967

== ENCOUNTER → 2023-12-13 | Outpatient (CLI) | payer MEDICARE ==
[2023-12-13 14:52] VITALS: BP 119/75; PULSE 73; RESP 16; TEMP 97.8
--- NOTE | 2023-12-27 12:43 | P.SLEEP ---
History of Present Illness DATE: 12/13/2023 CONSULTATION/NEW PATIENT EVALUATION HISTORY OF PRESENT ILLNESS/SLEEP-WAKE EVALUATION: 63-year-old gentleman had b een evaluated in the sleep center for obstructive sleep apnea hypopnea syndrome. Patient has history of moderate obstructive sleep apnea hypopnea syndrome documented in our institution in 2014. Patient continued to use his CPAP equipment since that time. Last time he was seen in our center in 2016. I checked CPAP unit. CPAP pressure is 11 cm of water. Usage is 28 out of 30 nights, average 6.8 hours per night. Leak is 1 L/min, which is normal. Apnea hypopnea index is 1.1 which is normal. Total life expectancy of CPAP unit was exceeded. SLEEP SCHEDULE: Usually sleep schedule on working days from 8 PM to 6:45 AM and on weekend from around 11 PM to 6:45 AM. FALLING ASLEEP: No problems with falling asleep. DURING SLEEP: No snoring while patient using CPAP equipment, wakes up from sleep 2 times with nocturia, restless leg symptoms. No history of hypnogogical hallucinations, sleep paralysis, or cataplexy. DURING THE DAY/WAKE STATE: No significant excessive daytime sleepiness during the day.. [place] sleepiness scale is 6. Patient usually does not take naps. PAST MEDICAL HISTORY: Acid reflux. PAST SURGICAL HISTORY: Tonsillectomy, appendectomy. MEDICATIONS: None. SOCIAL HISTORY: Please see below. FAMILY HISTORY: Heart problems, cancer, acid reflux. REVIEW OF SYSTEMS: No snoring while using CPAP, wakes up from sleep 2 times. No fevers. No double vision. No recent chest pain. No shortness of breath. No abdominal pain. No bleeding episodes. No blood in urine. No seizure episodes. PHYSICAL EXAMINATION: GENERAL: A pleasant patient without any distress. VITAL SIGNS: Please see below, weight 242 pounds, BMI 32.8. HEENT: PERRLA, EOMI. Evaluation of oropharynx showed tongue protrudes midline, low position of soft palate Mallampati 4. NECK: Supple. No JVD. Thyroid is not palpable. 16.5 inches in circumference. LUNGS: Clear to percussion and to auscultation. Good air exchange. No wheezing or rhonchi. HEART: S1, S2 regular. No murmurs, gallops or rubs. ABDOMEN: Soft and nontender. Bowel sounds are present. No organomegaly appreciated. EXTREMITIES: No clubbing or cyanosis. SPRAY FOAM INSTALLER: Awake, alert, and oriented x3. Cranial nerves 2 to 7 intact. There is no fasciculation or atrophy noted. No focal deficits observed. ASSESSMENT: 1. Obstructive sleep apnea hypopnea syndrome for about 9 years. Patient continued to use his CPAP equipment, no snoring on CPAP. Extremely low position of soft palate Mallampati 4. Obstructive sleep apnea hypopnea syndrome. 2. Obesity, BMI 32.8. 3. Acid reflux. 4. Status post tonsilectomy. 5 status post appendectomy. PLAN: 1. Home sleep apnea test for evaluation of patient's breathing during sleep at the present time. 2. Patient will need to replace CPAP unit, motor life expectancy exceeded. 3. Preferable position during sleep on the side. 4. No driving if patient feels any sleepiness. Patient is aware of civil and criminal liability for unsafe driving. 5. Sleep hygiene with regular sleep time for at least 7.5-8 hours. 6. Watching and losing weight. Thank you very much for referring this patient for consultation. Sincerely, Eliecer Ayers MD, PhD, FAASM. Diplomat of [place] [employer], Sleep Medicine Board by [place] [employer] [place] [employer] Industrial Education Instructor of [facility] [place] cc: Marko Galvan MD Past Medical History Past Medical History: GERD/Reflux, Sleep Apnea/CPAP/BIPAP Additional Past Medical History / Comment(s): ALICJA with CPAP, snoring, restless legs History of Any Multi-Drug Resistant Organisms: None Reported Past Surgical History: Appendectomy, Tonsillectomy Additional Past Surgical History / Comment(s): Colonoscopy with benign polypectomy, RK bilateral eyes. Past Anesthesia/Blood Transfusion Reactions: No Reported Reaction Past Psychological History: No Psychological Hx Reported Additional Psychological History / Comment(s): Pt resides with his spouse. He is independent. Smoking Status: Never smoker Past Alcohol Use History: None Reported Past Drug Use History: None Reported - Past Family History Father Family Medical History: Myocardial Infarction ([place]) Additional Family Medical History / Comment(s): Father of a [place] at the age of 48yrs. (. Siter - pacemaker, brother : T-cell non hodgkins lymphoma) Mother Family Medical History: Osteoarthritis ([place]) Additional Family Medical History / Comment(s): Mother at the age of 77yrs. Medications and Allergies Home Medications Medication Instructions Recorded Confirmed Type HYDROcodone/APAP 5-325MG [[place] 1 tab PO Q6HR PRN 3 Days #12 tab 01/13/19 Rx 5-325] Ibuprofen 800 mg PO TID #30 tablet 01/13/19 Rx Testosterone Cypionate 200 mg IM Q14D 01/13/19 01/13/19 History [Depo-Testosterone] Allergies Allergy/AdvReac Type Severity Reaction Status Date / Time cyclobenzaprine Allergy Rapid Verified 01/13/19 08:16 [From Flexeril] Heart Rate Physical Exam Vitals: Vital Signs Temp Pulse Resp BP Pulse Ox 12/13/23 14:50 97.8 F 73 16 119/75 96 Intake and Output 12/13/23 12/13/23 12/13/23 06:59 14:59 22:59 Other: Weight 109.769 kg Sleep Note - Sleep Data ESS Total: 6 - Sleep Note Sleep Note: Temperature: 97.8 F Pulse Rate: 73 Respiratory Rate: 16 Blood Pressure: 119/75 SpO2: 96 Height: 6 ft Weight: 109.769 kg BMI: Neck Circumference: 16.5
== END ==
LOC: 3 N SLEEP 14:32
PROVIDERS: ATTEND Internal Medicine
CPT/HCPCS: 99202

== ENCOUNTER → 2023-12-26 | Outpatient (CLI) | payer MEDICARE ==
--- NOTE | 2023-12-27 12:36 | P.PCN ---
Description of Procedure: CLINICAL: A home sleep apnea test has been done for confirmation of possible obstructive sleep apnea-hypopnea syndrome. DESCRIPTION OF PROCEDURE: RESULTS: Recording time was 7 hours 16 minutes. Evaluation time was 6 hours 50 minutes. Evaluation time is sufficient for making conclusion about results of the test. Raw data of sleep recording has been reviewed and is adequate. Respiratory channel showed 19 apneas and 71 hypopneas. Apnea-hypopnea index was 13.2 per hour. Pulse rate in the range between minimum 44, maximum 200, average 57 by computer calculation. Lowest desaturation was 78%. IMPRESSION: 1. Obstructive Sleep Apnea Hypopnea Syndrome with history of multiple awakenings from sleep. Home sleep apnea test most probably underestimate severity of sleep apnea, because it was done after several years of using CPAP equipment every night. Please see other impressions from consultation. PLAN: 1. The patient will continue treatment with CPAP for correction of respiratory abnormalities during sleep. Prescription to replace old CPAP unit. 2. I will see patient for follow up visit to discuss results of the test, evaluate clinical response on treatment with PAP therapy and make any necessary adjustments related to mask fitting, pressure, and humidification. 3. Watching and losing weight. 4. Sleep hygiene with regular time in bed for at least 8 hours. 5. No driving if feeling any sleepiness. Thank you very much for allowing me to participate in the management of your patient. Sincerely, Eliecer Ayers MD, PhD, FAASM Diplomat of [place] [employer] Sleep Medicine Board of [place] [employer] Healthcare Interpreter of [facility] [place] cc: Marko Galvan MD
== END | disposition home or self-care (01) ==
LOC: 3 N SLEEP 16:55
PROVIDERS: ATTEND Internal Medicine
DX: G47.33 Obstructive sleep apnea (adult) (pediatric) (principal)

== ENCOUNTER → 2024-04-03 | Outpatient (CLI) | payer MEDICARE ==
[2024-04-03 17:10] VITALS: BP 117/76; PULSE 66; RESP 16; TEMP 98.2
--- NOTE | 2024-04-03 17:58 | P.PROGSL ---
Subjective DATE: 04/03/2024 FOLLOW UP VISIT. Patient with obstructive sleep apnea hypopnea syndrome return to sleep center for follow-up visit. This is first visit after patient received new CPAP unit. Information from previous visit have been reviewed. Patient is using PAP equipment every night for the whole night, getting PAP supplies in time. The patient does not have significant problems with the mask, PAP unit and humidification. [place] sleepiness scale is 8, which is normal. I checked information from PAP unit. PAP unit pressure 8-12, average 11.7 cm H2O. Usage is 100% for more then 4 hours, average 7.5 hours per night. Leak is 10.4 l/m, which is in acceptable range. Apnea Hypopnea Index is 1.8, which is normal. Patient feels some discomfort when starting to use CPAP unit, pressure is too low during ramp. MEDICATIONS have been reviewed, please see below. During physical exam: GENERAL: A pleasant patient without any distress. VITAL SIGNS: Please see below, weight is 246 lbs. HEENT: PERRLA, EOMI.low position of soft palate, Mallapati 4. NECK: Supple. No JVD. LUNGS: Clear to percussion and to auscultation. Good air exchange. No wheezing or rhonchi. HEART: S1, S2 regular. ABDOMEN: Soft and nontender.[] EXTREMITIES: No clubbing or cyanosis. WOOD BOX MAKER: Awake, alert, and oriented x3. No focal deficit. Impressions: 1. Obstructive sleep apnea-hypopnea syndrome. Patient demonstrated great compliance with treatment, benefiting from treatment. 2. Obesity. 3. Acid reflux. 4. Status post tonsillectomy. 5. Status post appendectomy. I increased a ramp starting pressure from 4 to 6 cm of water. Plan: 1. Continue using PAP equipment every night for the whole night. 2. Sleep hygiene with regular time in bed for at least 7.5-8 hours 3. PAP unit should stay lower then position of the head. 4. Advised patient to remove all remaining water from humidifier canister daily and make it dry after each usage. Refill canister with fresh distilled water before each usage. 5. Watching weight. 6. Precautions related to driving. No driving if feel any sleepiness. 7. I will maintain prescription for PAP supplies including mask, tube, filters. 8. Follow up visit in 8 months or earlier if patient has any problems. Thank you very much for allowing me to participate in the management of your p atient. Eliecer Ayers MD, PhD, FAASM. Diplomat of [place] [employer], Sleep Medicine Board by [place] [employer] Deputy Juvenile Officer of [facility] [place] Objective - Vital Signs Vital Signs: Vital Signs Temp 98.2 F 04/03/24 17:09 Pulse 66 04/03/24 17:09 Resp 16 04/03/24 17:09 BP 117/76 04/03/24 17:09 Pulse Ox 96 04/03/24 17:09 FiO2 Intake & Output 04/02/24 04/03/24 04/03/24 18:59 06:59 18:59 Weight 111.584 kg Home Medications: Home Medications Medication Instructions Recorded Confirmed Type HYDROcodone/APAP 5-325MG [[place] 1 tab PO Q6HR PRN 3 Days #12 tab 01/13/19 Rx 5-325] Ibuprofen 800 mg PO TID #30 tablet 01/13/19 Rx Testosterone Cypionate 200 mg IM Q14D 01/13/19 01/13/19 History [Depo-Testosterone]
== END ==
LOC: 3 N SLEEP 16:09
PROVIDERS: ATTEND Internal Medicine
DX: G47.33 Obstructive sleep apnea (adult) (pediatric) (principal); E66.9 Obesity, unspecified; K21.9 Gastro-esophageal reflux disease without esophagitis; Z90.89 Acquired absence of other organs; Z48.815 Encounter for surgical aftercare following surgery on the digestive system; Z88.8 Allergy status to other drugs, medicaments and biological substances
CPT/HCPCS: 99212

== ENCOUNTER → 2024-05-10 | Outpatient (CLI) | payer MEDICARE ==
--- NOTE | 2024-05-12 14:33 | MR ---
EXAMINATION TYPE: MR shoulder LT wo con DATE OF EXAM: 05/10/2024 10:45 AM COMPARISON: None. CLINICAL INDICATION: Male, 63 years old with history of M25.512 LEFT SHOULDER PAIN; PHH, Lt shoulder pain TECHNIQUE: Multi planar, multi sequence imaging was performed of the shoulder including: Axial and coronal jared n density fat-saturated sequences, T2 fat-saturated sagittal sequence, and T1-weighted imaging. No G adolinium was given. Lt shoulder pain FINDINGS: Supraspinatus tendon: Articular surface partial tear near its insertion measuring up to 8 mm. Infraspinatus tendon: High PD signal intersubstance tear measuring 5 x 7 mm. High PD signal near its insertion on the humerus. Subscapularis tendon: Increased signal near its insertion. Teres minor tendon: Intact Long head biceps tendon: Intact, appropriately positioned within the bicipital groove. Normal ins ertion at the bicipital anchor. Fluid tracking along the tendon sheath. Acromioclavicular joint: Mild osteoarthrosis. Undersurface spurring impinging on the supraspinat us tendon. Small effusion. Glenohumeral joint: Mild osteoarthrosis. Normal articular cartilage. Small effusion. Glenoid labrum: Degenerative labrum with anterior labral tear. Muscle volume: Normal. Bone marrow: Cystic change near the insertion of the supraspinatus tendon on the humerus. Soft tissues: Unremarkable. Joint/bursal fluid: None IMPRESSION: 1. Supraspinatus tendinosis with articular surface partial tear of the fibers near its insertion. Ad ditional 2. Infraspinatus tendinosis with intrasubstance tear. 3. Mild acromioclavicular and glenohumeral joint arthropathy. 4. Long head biceps biceps tenosynovitis. 5. Degenerative labrum with anterior labral tear. [facility], , 05/12/2024 2:31 PM
== END | disposition home or self-care (01) ==
LOC: RADMRIMAIN 10:01
PROVIDERS: ATTEND Orthopaedic Surgery
DX: M67.814 Other specified disorders of tendon, left shoulder (principal); M75.112 Incomplete rotator cuff tear or rupture of left shoulder, not specified as traumatic; M65.912 Unspecified synovitis and tenosynovitis, left shoulder; M19.012 Primary osteoarthritis, left shoulder; M94.8X1 Other specified disorders of cartilage, shoulder